=== PATIENT | male | born 1970 | race Hispanic/Latino ===

== ENCOUNTER 2016-07-10 11:32 | Observation (INO) | payer OTHER ==
[2016-07-10 11:37] VITALS: BMI 32.3
[2016-07-10] MEDS ORDERED: Sodium Chloride 0.9% 1,000 ML IV STA (12:26)
[2016-07-10] MEDS ORDERED: guaiFENesin 200 mg/10 ml Syrup UD PO STA (12:27)
[2016-07-10] MEDS ORDERED: Levalbuterol 1.25 MG/3 ML Inhal Soln UD IH STA ×4 (12:27→17:26)
[2016-07-10] MEDS ORDERED: Ipratropium 0.02% Inhal Soln (0.5 mg/2.5 ml) UD IH STA ×3 (12:27→15:27)
--- NOTE | 2016-07-10 12:39 | ED PDOC ---
Arrival/HPI - General Chief Complaint: Cough, Cold, Congestion Time Seen by Provider: 07/10/16 11:39 Historian: Patient - History of Present Illness Narrative History of Present Illness (Text): 07/10/16 11:40 Moy Oakes is a 45 year old male, whose past medical history includes asthma, who presents to the emergency department complaining of sinus congestion and coughs for about 3 weeks. Patient states that he recently finished a 3 week prescription of Ciprofloxacin for prostatitis, and is being followed by Dr. Mcfarland. Patient states that he has mostly improved with his cough and congestion. However, patient states that over the last 1-2 days patient began to feel generalized weakness and dizziness while walking. Patient also still experiences a dull pain while urinating which is similar to the original diagnosis of prostatitis. Patient notes that today while he was carrying a heavy box, he began to feel short of breath and felt like he was going to pass out. Patient denies any headache, chest pain, abdominal pain, nausea, vomiting, diarrhea, or any other complaint at this time. PMD: None Time/Duration: < week Symptom Onset: Gradual Symptom Course: Unchanged Activities at Onset: Light Context: Home Past Medical History - Provider Review Nursing Documentation Reviewed: Yes - Past History Past History: No Previous - Infectious Disease Hx of Infectious Diseases: None - Tetanus Immunization Tetanus Immunization: Unknown - Pulmonary Hx Asthma: Yes - Genitourinary/Gynecological Hx Genitourinary Disorders: Yes Other/Comment: prostatitis - Psychiatric Hx Depression: No Hx Emotional Abuse: No Hx Physical Abuse: No Hx Substance Use: No - Surgical History Hx Orthopedic Surgery: Yes (ANKLE, left when he was 11 yr/old) - Anesthesia Hx Anesthesia: Yes Hx Anesthesia Reactions: No Hx Malignant Hyperthermia: No - Suicidal Assessment Feels Threatened In Home Enviroment: No Family/Social History - Physician Review Nursing Documentation Reviewed: Yes Family/Social History: No Known Family HX Smoking Status: Current Some Days Smoker Hx Alcohol Use: Yes Frequency of alcohol use: Socially Hx Substance Use: No Hx Substance Use Treatment: No Allergies/Home Meds Allergies/Adverse Reactions: Allergies shellfish derived Allergy (Verified 07/10/16 11:53) RASH Home Medications: Home Meds Medication Instructions Recorded Confirmed Budesonide/Formoterol Fumarate 2 puff IH BID 05/03/12 07/10/16 [Symbicort] Albuterol HFA [Ventolin HFA 90 2 puff IH [id number] 07/10/16 07/10/16 mcg/actuation (8 g)] Review of Systems - Physician Review All systems were reviewed & negative as marked: Yes - Review of Systems Constitutional: absent: Fevers, Night Sweats Eyes: absent: Vision Changes ENT: Sinus Congestion. absent: Hearing Changes Respiratory: SOB, Cough Cardiovascular: Other (near syncope). absent: Chest Pain Gastrointestinal: absent: Abdominal Pain Genitourinary Male: Dysuria. absent: Urinary Output Changes Musculoskeletal: absent: Arthralgias, Back Pain, Neck Pain Skin: absent: Rash, Pruritis Neurological: Dizziness Endocrine: absent: Diaphoresis, Polyuria Hemo/Lymphatic: absent: Easy Bleeding Psychiatric: absent: Depression Physical Exam Vital Signs Reviewed: Yes Vital Signs Temp Pulse Resp BP Pulse Ox 07/10/16 17:29 61 18 123/65 99 07/10/16 16:25 64 18 125/67 99 07/10/16 14:11 67 18 128/69 99 07/10/16 12:56 69 18 130/68 99 07/10/16 11:56 98.2 F 75 18 132/71 99 Temperature: Afebrile Blood Pressure: Normal Pulse: Regular Respiratory Rate: Normal Appearance: Positive for: Non-Toxic Pain Distress: None Mental Status: Positive for: Alert and Oriented X 3 - Systems Exam Head: Present: Atraumatic, Normocephalic Pupils: Present: PERRL Conjunctiva: Present: Normal Mouth: Present: Moist Mucous Membranes Pharnyx: Present: Normal. No: ERYTHEMA, EXUDATE Neck: Present: Normal Range of Motion Respiratory/Chest: Present: Wheezes (Significant wheezing at bilateral lung bases), Rhonchi (Occasional rhonchi). No: Good Air Exchange (Air entry diminished) Cardiovascular: Present: Regular Rate and Rhythm, Normal S1, S2. No: Murmurs Abdomen: Present: Normal Bowel Sounds. No: Tenderness, Distention, Peritoneal Signs Back: Present: Normal Inspection Upper Extremity: Present: Normal Inspection. No: Cyanosis, Edema Lower Extremity: Present: Normal Inspection. No: Edema Neurological: Present: GCS=15, CN II-XII Intact, Speech Normal Skin: Present: Warm, Dry, Normal Color. No: Rashes Psychiatric: Present: Alert, Oriented x 3, Normal Insight, Normal Concentration Medical Decision Making ED Course and Treatment: 07/10/16 1:40 Impression: 45 year old male complaining of sinus congestion and cough for 3 weeks and weakness and dizziness 1-2 days ago. Differential Diagnosis included but are not limited to: Asthma vs. CHF vs. Atypical ACS vs. Electrolyte abnormality Plan: -- EKG -- Chest X-ray -- Urinalysis -- Labs -- Robitussin, Atrovent, Xopenex, Solu-medrol, and IV Fluids -- Reassess and disposition Prior Visits: Notes and results from previous visits were reviewed. Patient last seen in the ED on 04/16/15 for cough, nasal congestion, and subjective fevers for 1 week. Patient was admitted to hospitalist care for further evaluation. Progress Notes: EKG: Ordered, reviewed, and independently interpreted the EKG. Rate : 73 BPM Rhythm : NSR Interpretation : Normal intervals. Borderline left axis. No ST-T changes. 07/10/16 19:33 Patient with noted history. EKG is unremarkable. Patient treated for asthma with slow improvement and now air entry is better though slightly diminished still with some mild persistent wheezing. Patient however still saying that twice here in the ED after attempting to ambulate still has the feeling of being dizzy with ambulation. Given concern for near syncope - will need to observe further. D-dimer did come back above normal; CTA chest showed no PE but on suboptimal study. Will observe on tele. Case discussed with radio communication coordinator physician, Dr. Howard, covering Dr. Alvarado, who said to put the patient on his own service. Will obtain cardio and pulmonary consults as well as consult from Dr. Mcfarland who is following him for prostatitis. - Lab Interpretations Lab Results: 07/10/16 13:30 07/10/16 13:30 Lab Results 07/10/16 17:10: D-Dimer, Quantitative 0.53 H 07/10/16 13:30: Urine Color Yellow, Urine Appearance Clear, Urine pH 6.0, Ur Specific [place] <= 1.005, Urine Protein Negative, Urine Glucose (UA) Negative, Urine Ketones Negative, Urine Blood Negative, Urine Nitrate Negative, Urine Bilirubin Negative, Urine Urobilinogen 0.2, Ur Leukocyte Esterase Negative 07/10/16 13:30: Sodium 142, Potassium 4.4, Chloride 106, Carbon Dioxide 26, Anion Gap 14, BUN 17, Creatinine 0.8, Est GFR ( Amer) > 60, Est GFR (Non- Af Amer) > 60, Random Glucose 87, Calcium 9.4, Total Bilirubin 0.6, AST 29, ALT 47, Alkaline Phosphatase 62, Lactate Dehydrogenase 437, Total Creatine Kinase 90 , Troponin I < 0.01, NT-Pro-B Natriuret Pep 17.6, Total Protein 8.1, Albumin 4.8 , Globulin 3.3, Albumin/Globulin Ratio 1.5, Lipase 262 07/10/16 13:30: PT 10.6, INR 0.98, APTT 26.8 07/10/16 13:30: WBC 6.7, RBC 5.22, Hgb 15.9, Hct 44.2, MCV 84.7, MCH 30.5, MCHC 36.0, RDW 12.8, Plt Count 239, MPV 10.2, Gran % 70.4 H, Lymph % (Auto) 19.1 L, Cloud % (Auto) 7.0 H, Eos % (Auto) 3.1, Baso % (Auto) 0.4, Gran # 4.74, Lymph # 1.3, Cloud # 0.5, Eos # 0.2, Baso # 0.03 I have reviewed the lab results: Yes - RAD Interpretation Radiology Orders: 07/10/16 12:26 CHEST TWO VIEWS (PA/LAT) [RAD] Stat 07/10/16 17:50 ANGIO CHEST PE PROTOCOL [CT] Stat - Medication Orders Current Medication Orders: Discontinued Medications Aspirin (Aspirin Chewable) 324 mg PO STAT STA Stop: 07/10/16 19:25 Guaifenesin (Robitussin) 400 mg PO ONCE STA Stop: 07/10/16 12:28 Last Admin: 07/10/16 13:41 Dose: Not Given Non-Admin Reason: Patient Refused Sodium Chloride (Sodium Chloride 0.9%) 1,000 mls @ 999 mls/hr IV .Q1H1M STA Stop: 07/10/16 13:26 Last Admin: 07/10/16 13:40 Dose: 999 mls/hr Iodixanol (Visipaque 320 Mg/Ml 100 Ml) Confirm Administered Dose 100 ml IV .STK- MED ONE Stop: 07/10/16 18:13 Ipratropium Viola (Atrovent) 0.5 mg IH STAT STA Stop: 07/10/16 12:28 Last Admin: 07/10/16 13:40 Dose: 0.5 mg Ipratropium Viola (Atrovent) 0.5 mg IH STAT STA Stop: 07/10/16 12:28 Last Admin: 07/10/16 13:41 Dose: 0.5 mg Ipratropium Viola (Atrovent) 0.5 mg IH STAT STA Stop: 07/10/16 15:28 Last Admin: 07/10/16 16:13 Dose: 0.5 mg Levalbuterol HCl (Xopenex) 1.25 mg IH STAT STA Stop: 07/10/16 12:28 Last Admin: 07/10/16 13:41 Dose: 1.25 mg Levalbuterol HCl (Xopenex) 1.25 mg IH STAT STA Stop: 07/10/16 12:28 Last Admin: 07/10/16 13:41 Dose: 1.25 mg Levalbuterol HCl (Xopenex) 1.25 mg IH STAT STA Stop: 07/10/16 15:28 Last Admin: 07/10/16 16:13 Dose: 1.25 mg Levalbuterol HCl (Xopenex) 1.25 mg IH STAT STA Stop: 07/10/16 17:27 Last Admin: 07/10/16 17:46 Dose: 1.25 mg Methylprednisolone (Solu-Medrol) 125 mg IVP STAT STA Stop: 07/10/16 12:28 Last Admin: 07/10/16 13:40 Dose: 125 mg - Scribe Statement The provider has reviewed the documentation as recorded by the Mona Garcia Provider Scribe Attestation: All medical record entries made by the Luis Albertoibmariza were at my direction and personally dictated by me. I have reviewed the chart and agree that the record accurately reflects my personal performance of the history, physical exam, medical decision making, and the department course for this patient. I have also personally directed, reviewed, and agree with the discharge instructions and disposition. Disposition/Present on Arrival - Present on Arrival Any Indicators Present on Arrival: No History of DVT/PE: No History of Uncontrolled Diabetes: No Urinary Catheter: No History of Decub. Ulcer: No History Surgical Site Infection Following: None - Disposition Have Diagnosis and Disposition been Completed?: Yes Diagnosis: Near syncope, Asthma exacerbation Disposition: HOSPITALIZED Disposition Time: 18:55 Patient Plan: Observation, Telemetry Condition: FAIR Referrals: PCP,NO [Primary Care Provider] - Follow up with primary
[2016-07-10 13:38] LABS: ADD MANUAL DIFF? NO
[2016-07-10 13:44] LABS: BASO # 0.03 K/mm3 (0.0-2.0); BASO % 0.4 % (0.0-3.0); EOS # 0.2 (0.0-0.7); EOS % 3.1 % (1.5-5.0); GRAN # 4.74 (1.4-6.5); GRAN % 70.4 % (50.0-68.0); HEMATOCRIT 44.2 % (42.0-52.0); LYMPH # 1.3 (1.2-3.4); LYMPH % 19.1 % (22.0-35.0); MEAN CELL VOLUME 84.7 fL (80.0-105.0); MEAN CORPUSCULAR HEMOGLOBIN 30.5 pg (25.0-35.0); MEAN PLATELET VOLUME 10.2 fl (7.0-11.0); MONO # 0.5 (0.1-0.6); PLATELET COUNT 239 10^3/uL (120.0-450.0); RED CELL DISTRIBUTION WIDTH 12.8 % (11.5-14.5); WHITE BLOOD COUNT 6.7 10^3/ul (4.5-11.0)
[2016-07-10 13:47] LABS: URINE BILIRUBIN NEGATIVE (NEGATIVE); URINE BLOOD NEGATIVE (NEGATIVE); URINE GLUCOSE (UA) NEGATIVE (NEGATIVE); URINE KETONE NEGATIVE (NEGATIVE); URINE LEUKOCYTE ESTERASE NEGATIVE Leu/uL (NEGATIVE); URINE PROTEIN NEGATIVE mg/dL (<30 mg/dL); URINE UROBILINOGEN 0.2 E.U./dL (<1 E.U./dL)
[2016-07-10 13:49] LABS: URINE APPEARANCE CLEAR (CLEAR); URINE COLOR YELLOW (YELLOW)
[2016-07-10 13:59] LABS: ALB/GLOB RATIO 1.5 (1.1-1.8); ALKALINE PHOSPHATASE 62 U/L (38-133); ALT/SGPT 47 U/L (7-56); AST/SGOT 29 U/L (15-59); BILIRUBIN,TOTAL 0.6 mg/dL (0.2-1.3); BLOOD UREA NITROGEN 17 mg/dL (7-21); CALCIUM 9.4 mg/dL (8.4-10.5); CARBON DIOXIDE 26 mmol/L (21-33); CHLORIDE 106 mmol/L (98-107); GFR AFRICAN-AMERICAN > 60; GLUCOSE,RANDOM 87 mg/dL (70-110); LIPASE 262 U/L (23-300); POTASSIUM 4.4 mmol/L (3.6-5.0); SODIUM 142 mmol/L (132-148); TOTAL PROTEIN 8.1 g/dL (5.8-8.3)
[2016-07-10 14:07] LABS: INR 0.98 (0.93-1.08); PARTIAL THROMBOPLASTIN TIME 26.8 Seconds (23.7-30.8)
[2016-07-10 14:11] LABS: TROPONIN I < 0.01 ng/mL
--- NOTE | 2016-07-10 15:42 | RAD ---
HISTORY: sob COMPARISON: 04/16/2015 TECHNIQUE: Chest PA and lateral FINDINGS: LUNGS: No active pulmonary disease. PLEURA: No significant pleural effusion identified. No pneumothorax apparent. CARDIOVASCULAR: Normal. OSSEOUS STRUCTURES: No significant abnormalities. VISUALIZED UPPER ABDOMEN: Normal. OTHER FINDINGS: None. IMPRESSION: No active disease.
[2016-07-10] MEDS ORDERED: Iodixanol 320 MG/ML 100 ML BOTTLE IV ONE (18:12)
--- NOTE | 2016-07-10 18:44 | CT ---
CT chest with IV contrast Indication: sob, chest tight, near syncope - r/o PE Technique: Contiguous axial images were obtained through the chest with intravenous contrast enhancement. Sagittal and coronal reconstructions were generated and reviewed. This CT exam was performed using 1 or more of the falling dose reduction techniques: Automated exposure control, adjustment of the MAA and/or kV according to patient size, and/or use of iterative reconstruction technique. IV Contrast: 100 mL Visipaque Radiation dose (DLP): 634.50 MGy-cm. Comparison: Chest x-ray performed earlier the same day. Findings: Visualized portions of the inferior thyroid gland appear unremarkable. The mediastinal and hilar vascular structures appear grossly unremarkable. The heart appears within normal limits of size. There is suboptimal opacification of the pulmonary arteries due to streak artifact limiting evaluation for pulmonary embolus. Given this limitation, there are no visible intraluminal filling defects within the central pulmonary arteries to suggest central pulmonary embolism. No focal consolidation. No pleural effusion. No pneumothorax. No suspicious pulmonary nodules identified measuring greater than 5 mm. Small hiatal hernia. Limited visualization of the upper abdomen appears unremarkable. No acute osseous abnormality is detected. Impression: There is suboptimal opacification of the pulmonary arteries due to streak artifact limiting evaluation for pulmonary embolus. Given this limitation, there are no visible intraluminal filling defects within the central pulmonary arteries to suggest central pulmonary embolism.
[2016-07-10] MEDS ORDERED: MethylPREDNISolone 40 mg Vial IVP SCH (22:00)
--- NOTE | 2016-07-10 22:39 | CP.PCM.PN ---
Subjective - Date & Time of Evaluation Date of Evaluation: 07/10/16 Time of Evaluation: 23:47 - Subjective Subjective: S:Requests sleeping pill can not sleep from all the noises in the hospital. O: Last Vital Signs 3 Temp 98.2 F 07/10/16 11:56 Pulse 116 H 07/10/16 21:00 Resp 18 07/10/16 21:00 BP 126/87 07/10/16 21:00 Pulse Ox 95 07/10/16 21:00 Awake, alert, not in distress. LUNGS:Normal breathing pattern. NEURO:Speech normal. A:Adjustment insomnia. P:Benadryl 25 mg PO x 1. Objective - Vital Signs/Intake and Output Vital Signs (last 24 hours): Temp Pulse Resp BP Pulse Ox 98.2 F 116 H 18 126/87 95 07/10/16 11:56 07/10/16 21:00 07/10/16 21:00 07/10/16 21:00 07/10/16 21:00 - Medications Medications: Current Medications Levalbuterol HCl (Xopenex) 1.25 mg IH [id number] KALIN Methylprednisolone (Solu-Medrol) 30 mg IVP Q12 KALIN Tamsulosin HCl (Flomax) 0.4 mg PO DAILY KALIN - Labs Labs: PT 10.6 Seconds (9.9-11.8) 07/10/16 13:30 INR 0.98 (0.93-1.08) 07/10/16 13:30 APTT 26.8 Seconds (23.7-30.8) 07/10/16 13:30
[2016-07-11] MEDS ORDERED: Alum-Mag Hydrox-Simethicone Susp (30 mL) PO STA ×2 (00:03→04:38)
--- NOTE | 2016-07-11 01:33 | CARD ---
APPROVED REPORT EKG Measurement Heart [id number] [id number] <Conclusion> Normal sinus rhythm Minimal voltage criteria for LVH, may be normal variant Cannot rule out Anterior infarct, age undetermined Abnormal ECG
[2016-07-11] MEDS: Levalbuterol 1.25 MG/3 ML Inhal Soln UD IH SCH ×3 (01:46→13:59)
[2016-07-11 02:01] VITALS: RESP 19
--- NOTE | 2016-07-11 02:15 | PCM.URO ---
Urology Progress Note - Objective Vital Signs: Vital Signs - 24 hr 07/10/16 07/10/16 07/10/16 21:00 22:00 23:06 Temperature 98.1 F Pulse Rate 116 H 106 H 107 H Respiratory 18 20 Rate Blood Pressure 126/87 131/87 O2 Sat by Pulse 95 Oximetry 07/11/16 00:01 Temperature 97.3 F L Pulse Rate 98 H Respiratory 19 Rate Blood Pressure 125/77 O2 Sat by Pulse 97 Oximetry
[2016-07-11 06:16] VITALS: BP 118/74; TEMP 97.7; O2SAT 94
[2016-07-11] MEDS ORDERED: Barium Sulfate Susp 2.1% w/v, 2.0% w/w 450 mL Bottle PO ONE (07:14)
--- NOTE | 2016-07-11 07:44 | CON ---
DATE: 07/10/2016 REASON FOR CONSULTATION: Shortness of breath. HISTORY OF PRESENT ILLNESS: The patient is a 45-year-old male who is a cigar smoker, has a history o f bronchial asthma and no known prior cardiac history. He has been experiencing upper respiratory tr act infection as well as sinus congestion. The patient has been experiencing chills, but no fever. He presented because of cough, shortness of breath and at times wheezing. The patient had seen his [facility] physician recently, but for prostatitis. The patient had no complaint of his asthma at this [facility], and the patient is unaware of any prior cardiac history. SOCIAL HISTORY: The patient is a smoker. His smokes at home, he himself smokes cigars once in a while according to him. MEDICATIONS: Flomax 0.4 mg daily, Solu-Medrol 30 mg intravenously q. 12 hours, Xopenex inhaler q. 6 hours p.r.n. PHYSICAL EXAMINATION: GENERAL: The patient is a middle-aged male who does not appear to be in any distress. VITAL SIGNS: Blood pressure 126/87, heart rate 116, respirations 18, temperature 98.2. HEENT: Normocephalic. NECK: No JVD. CHEST: Bilateral rhonchi. No wheezing. HEART: S1, S2 regular. ABDOMEN: Soft. EXTREMITIES: No edema, no calf tenderness. LABORATORY DATA: Hemoglobin and hematocrit, white count and platelet count are within normal limits. SMA-7 is within normal limits. One set of troponin is negative. Lipase level is within normal [place] its. D-dimer is 0.53. EKG revealed sinus rhythm, cannot rule out old anterior infarct. Chest CT angio: There is suboptima l opacification of the pulmonary arteries due to streak artifact. Given this limitation, there is no visible intraluminal filling defect within the central pulmonary arteries to suggest central pulmona ry embolism. ASSESSMENT: 1. Exacerbation of bronchial asthma. 2. Atypical chest discomfort. RECOMMENDATIONS: Continue current Solu-Medrol 30 mg intravenous q. 12 hours. Continue Xopenex inhal er. Start Lovenox at 30 mg once a day. Obtain an echocardiogram and urine for drug screen. Nabil A Sandornallah MD cc: [id number] TT: 07/11/2016 07:43:48 Confirmation # [id number] Dictation # [id number] mn
[2016-07-11 07:47] LABS: HEMATOCRIT 42.4 % (42.0-52.0); MEAN CELL VOLUME 84.6 fL (80.0-105.0); MEAN CORPUSCULAR HEMOGLOBIN 29.7 pg (25.0-35.0); MEAN CORPUSCULAR HGB CONC 35.1 g/dl (31.0-37.0); MEAN PLATELET VOLUME 10.7 fl (7.0-11.0); RED CELL DISTRIBUTION WIDTH 13.1 % (11.5-14.5); WHITE BLOOD COUNT 13.2 10^3/ul (4.5-11.0)
[2016-07-11] MEDS ORDERED: Budesonide 0.5 mg/2 ml Inhal Susp UD IH SCH (08:00)
[2016-07-11 08:08] LABS: ALB/GLOB RATIO 1.4 (1.1-1.8); ALKALINE PHOSPHATASE 52 U/L (38-133); ALT/SGPT 38 U/L (7-56); AST/SGOT 23 U/L (15-59); BILIRUBIN,TOTAL 0.6 mg/dL (0.2-1.3); BLOOD UREA NITROGEN 15 mg/dL (7-21); CALCIUM 9.3 mg/dL (8.4-10.5); CARBON DIOXIDE 21 mmol/L (21-33); CHLORIDE 108 mmol/L (98-107); GFR AFRICAN-AMERICAN > 60; GLUCOSE,RANDOM 110 mg/dL (70-110); POTASSIUM 4.5 mmol/L (3.6-5.0); SODIUM 141 mmol/L (132-148); TOTAL PROTEIN 7.6 g/dL (5.8-8.3)
--- NOTE | 2016-07-11 09:26 | CON ---
DATE: 07/11/2016 REASON FOR PULMONARY CONSULTATION: Asthma. REFERRING PHYSICIAN: Dr. Kamar Howard The patient is a 45-year-old male with past medical history significant for asthma, recurrent bronchitis, chronic sinusitis, who presents to [facility] after a near syncopal episode. 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 This feeling was accompanied by shortness of breath. He then came to the Emergency Room for additional evaluation. The patient is not short of breath at rest. He does state to some mild dyspnea on exertion. He does state to a minimal cough with sputum production -- decreased from the beginning of the month. No history of chest pain, coughing up of blood, or chest pain -- made worse with deep respirations. There is no history of temperatures, chills or infectious exposure. There is no history of night sweats, weight loss or appetite change prior to the above events. No history of leg or calf pains. No history of syncope or diaphoresis. No history of recent travel or trauma. REVIEW OF SYSTEMS: The patient does have chronic prostate problems and problems with urination. The patient also has chronic sinus problems. No nausea, vomiting or diarrhea. No new musculoskeletal complaints. Rest is negative. ALLERGIES: SHELLFISH. SOCIAL HISTORY: Negative for tobacco, negative for alcohol. FAMILY HISTORY: No inheritable diseases. HOME MEDICATIONS: Include albuterol, Symbicort, and Flomax. PHYSICAL EXAMINATION: GENERAL: The patient appears comfortable this morning. He is not short of breath at rest. VITAL SIGNS: Temperature is 97.7, pulse 72, respirations 19, blood pressure 118 /74. Oxygen saturation on nasal cannula is 94%-97%. HEENT: Normocephalic, atraumatic. No JVD. CARDIOVASCULAR: Positive S1, S2. No S3. LUNGS: Decreased breath sounds at the bases. Mild bilateral rhonchi. No wheezing. EXTREMITIES: No clubbing, cyanosis, or edema. Calves are nontender to palpation. GASTROINTESTINAL: Abdomen is soft, nontender, nondistended. Bowel sounds are positive. SKIN: No acute rash. NEUROLOGIC: Limited at the present time. PERTINENT LABORATORY DATA: CAT scan of the chest was done as an angiogram protocol. There is no pulmonary embolism seen. There is no lymphadenopathy. There is no pulmonary consolidation, pleural effusion, or pulmonary nodule seen. CBC: White count 6.7, hemoglobin 15.9, hematocrit 44.2, platelets of 239. Complete metabolic profile is completely within normal limits. IMPRESSION: 1. Near syncope. 2. Asthma. 3. Recurrent bronchitis. 4. Chronic sinusitis. PLAN: This patient is well known to me, and I have followed him in the office for many years. Apparently, yesterday, when carrying a heavy box at work, he felt very dizzy and almost like he was about to pass out. This feeling was accompanied by shortness of breath. At the time of my examination, the patient is not short of breath, and states he is feeling much better-- compared to yesterday. I did review the CAT scan of the chest. There is no pulmonary embolism seen. There are no pulmonary masses, nodules or consolidations seen. On physical exam, the patient is in mild bronchospasm. I will continue with the current nebulizer treatments and add inhaled Pulmicort. The patient is on Symbicort at home. I will also decrease the intravenous steroids this morning. Lastly, I will start the patient on nasal steroids. Genitourinary evaluation is noted. CAT scan of the abdomen and pelvis is ordered for later today. Cardiology evaluation with Dr. Felix has also been ordered. The patient's clinical status is significantly improved this morning -- compared to yesterday. Additional pulmonary intervention will be based on the clinical status of the patient. I did discuss the above with Dr. Kamar Howard. Thank you very much for this pulmonary consultation. Rishi Piedra MD cc: [phone] TT: 07/11/2016 09:25:46 Confirmation # [id number] Dictation # [id number] MTDD
--- NOTE | 2016-07-11 09:33 | PN ---
DATE: 07/11/2016 HISTORY OF PRESENT ILLNESS: I was called to see the patient. He is here for a little bit of dizzine ss and some shortness of breath and chest pain. He had a rough day the past few weeks. He is a 45-y ear-old male with 3 weeks of a cough, cold, congestion. He was on Cipro for prostatitis by Dr. Cr maguire. He was doing fairly well, until he got dizzy, he got weak. He was not eating or drinking well a nd then he went and sat in a car with the air conditioning on, had a chocolate bar then carried 20 po unds of screws about 200 yards and got short of breath and came to the Emergency Room. He has a past medical history of asthma. He thought it was his asthma that made him short of breath. He sees Dr. Piedra, the herbarium worker, on the outpatient and also has prostatitis, he sees Dr. Mcfarland. PAST SURGICAL HISTORY: He had a left ankle surgery when he 11. FAMILY HISTORY: He has no known family history. SOCIAL HISTORY: He still smokes cigarettes. I told him he has to quit. He does drink alcohol socia lly. No drugs. ALLERGIES: SHELLFISH. MEDICATIONS: He is on Symbicort and Ventolin, his medicines on the outpatient. REVIEW OF SYSTEMS: He had no fevers, no sweats, no vision changes, no hearing changes, no sore throa t. No neck pain. He did have shortness of breath and cough, not much phlegm. No chest pain, no pal pitations. He did feel a little dizzy, almost passed out, but did not. No abdominal pain, nausea, v omiting, constipation. Does have problems urinating, a little discomfort, but the Cipro has helped h im in the past and Dr. Mcfarland sees him on the outpatient for that. No back pain, neck pain. No elfego hes or skin issues or itching. He was a little bit dizzy, that it better now; I think the IV fluids helped a lot. He was not sweating, no increase in urination, not easily bleeding. Not depressed or anxious. PHYSICAL EXAMINATION: VITAL SIGNS: He has 98.2 temp, 69 pulse, 18 respiratory rate, 130/68 blood pressure, 99% O2 sat on r oom air. HEENT: Head is atraumatic, normocephalic. Extraocular muscles are intact. Pupils reactive to light and accommodation. Throat is moist. NECK: Supple. HEART: Regular rate. Normal S1, S2. LUNGS: Decreased breath sounds, occasional wheeze when he came into the hospital, right now the lung s are completely clear. He is not short of breath. He feels good. He is walking to the bathroom we ll. No chest pain, no dizziness, no palpitations. ABDOMEN: Soft, nontender, positive bowel sounds, no guarding, no rebound, no CVA tenderness. EXTREMITIES: Have no edema. He moves all 4 extremities well. He is walking to the bathroom. NEUROLOGIC: GCS is 15. Cranial nerves II-XII grossly intact. Normal speech. He is happy, smiling, says he has to leave. Alert and oriented x 3. Normal insight. Normal concentration. SKIN: Warm and dry, no rashes. No ulcers. Intact. NEUROLOGIC: LYMPHATICS: Thyroid midline. No palpable appreciative lymphadenopathy. LABORATORY DATA: He had some tests done. Urine for drugs was negative. Urine itself was negative. Chemistry is 142 sodium, potassium 4.4, BUN 17, creatinine 0.8, GFR is greater than 60, sugar is 87, calcium is 9.4, total bili is 0.6, AST is 29, ALT is 47, alk phosphatase 62. Lactic dehydrogenase i s 437, total creatinine kinase is 90, troponin I is less than 0.01. BNP is 17.6, total protein is 8. 1, albumin is 4.8, globulin 3.3. Lipase is 262. INR is 0.98. D-dimer was 0.53 little high to is be cause of the CAT scan. WBC is 6.7, hemoglobin 15.9, hematocrit 44.2, platelets of 239, excellent blo od tests. He did have a chest x-ray, no active disease. CAT scan of the chest showed there suboptim al opacification of the pulmonary arteries due to streak artifact limiting evaluation of pulmonary em bolus, given the limitation there are no visible intraluminal any filling defects within the central pulmonary arteries to suggest central pulmonary embolism. He was seen by pulmonary and urology. He will be able to be discharged today. I discussed with chris aguilera, he is doing much better. He will be sent home on prednisone 30 for 3 days, 20 for 3 days, 10 for 3 days, also on his Symbicort, albuterol and Flomax. He will follow up with Dr. Piedra, Dr. Karen coker, Dr. Howard on the outpatient. He is here for coughing, congestion for 3 weeks, a bit of dizziness which resolved, near syncope. Th ere was a consult with neurology and cardiology. I would like them to see him before he leaves. PLAN: My plan is to discharge him for outpatient workup, since he is back to normal at this time and should be able to be discharged later this afternoon. Kamar Howard DO cc: [id number] TT: 07/11/2016 09:32:05 Confirmation # [id number] Dictation # [id number] [id number]
[2016-07-11] MEDS ORDERED: Fluticasone Nasal 50 mcg/Spray NS SCH (10:00)
[2016-07-11] MEDS ORDERED: MethylPREDNISolone 40 mg Vial IVP SCH (10:00)
[2016-07-11] MEDS ORDERED: Enoxaparin 30 mg Syringe SC SCH (10:00)
--- NOTE | 2016-07-11 10:35 | DS ---
His breathing issues, his dizziness have all resolved. He is also urinating better. MEDICATIONS: He is on Flonase, Flomax, Lovenox, Pulmicort, Solu-Medrol, and Xopenex. PHYSICAL EXAMINATION: VITAL SIGNS: Good at 97.7 temp, 72 pulse, 118/78 blood pressure, 19 respiratory rate, 94%-97% O2 sat on nasal cannula. HEAD: Atraumatic, normocephalic. HEART: Regular rate. LUNGS: Clear to auscultation. No wheezes, no rhonchi, no rales. ABDOMEN: Soft. EXTREMITIES: No edema. No more dizziness. He is walking to the bathroom fine. He did very well with his blood tests. There are consults for pulmonary, neurology, urology, and cardiology. I think they could all follow up on the outpatient. PLAN: My plan is to discharge him today. Prednisone 30 for 3 days, 20 for 3 days, 10 for 3 days. Follow with pulmonary, cardio, neurology, and Dr. Howard on the outpatient. He feels he is back to normal. He is for observation status at this time. The patient is here for almost near syncope and acute asthma. Kamar Howard DO cc: [id number] TT: 07/11/2016 10:34:34 jn MTDD
--- NOTE | 2016-07-11 11:54 | CP.PCM.PCO ---
Physician Communication Note - Physician Communication Note Physician Communication Note: pt seen can f/u in office. stable
[2016-07-11 12:24] VITALS: PULSE 85
--- NOTE | 2016-07-11 12:25 | CON ---
DATE: 07/11/2016 HISTORY OF PRESENT ILLNESS: This is a 45-year-old male with past medical history of asthma, bronchit is and came here with the complaint of a near syncopal episode while at work. The patient says he wa s carrying heavy box yesterday when he suddenly felt like going to pass out, did not fall. No tongue bite. No urinary incontinence. I was called to evaluate the patient. PAST MEDICAL HISTORY: As above. SOCIAL HISTORY: Does not smoke, does not drink. REVIEW OF SYSTEMS: A 10-point review of system was negative. ALLERGIES: SHELLFISH. PHYSICAL EXAMINATION: HEENT: Normocephalic, atraumatic. NECK: Supple. NEUROLOGIC: Alert, awake, oriented x 3. No aphasia. Cranial nerves II-XII were tested. Pupils saige ctive. EOM intact. Visual barrios full. No facial asymmetry. Tongue midline. Motor: Moves all th e extremities equally. Tone normal. Deep tendon reflexes 1+. Both plantars are downgoing. Sensory appears intact. Cerebellar, gait normal. IMPRESSION: Near syncope, less likely seizure. Workup in progress. PLAN: Continue present management. We will follow up. Kody Awad MD cc: [id number] TT: 07/11/2016 12:24:23 Confirmation # [id number] Dictation # [id number]
--- NOTE | 2016-07-11 15:16 | PN ---
DATE: 07/11/2016 The patient feels well. No shortness of breath, no dizziness. PHYSICAL EXAMINATION: VITAL SIGNS: Blood pressure is 150/90, the heart rate is in the 80s. NECK: Negative JVD. LUNGS: Without rales. HEART: S1, S2. EXTREMITIES: Without edema. LABORATORY DATA: Troponin was negative x 1. The hemoglobin is 14.9. Preliminary echo results revealed normal LV function with no LV outflow obstruction. IMPRESSION: 1. Near syncope after exertion. 2. No cardiac evidence for cause of his near syncope. 3. Dyspnea secondary to #4. 4. Bronchospasm. PLAN: Given these findings, there is no identifiable cardiac cause for his near syncopal episode. H is breathing is improved. Given these findings, the patient is already discharged today. We will arrange for an outpatient stress test to rule out CAD. Micheal Felix MD cc: [id number] TT: 07/11/2016 15:15:35 Confirmation # [id number] Dictation # [id number]
--- NOTE | 2016-07-11 15:28 | CT ---
PROCEDURE: CT abdomen and pelvis 07/11/2016 HISTORY: Recurrent prostatitis. COMPARISON: None. TECHNIQUE: Contiguous axial images of the abdomen and pelvis following oral an before and after intravenous injection of approximately 150 cc of Omnipaque 350 contrast material. Coronal and Sagittal reformats generated. Radiation dose: Total exam DLP = 1855.92 mGy-cm. This CT exam was performed using one or more of the following dose reduction techniques: Automated exposure control, adjustment of the mA and/or kV according to patient size, and/or use of iterative reconstruction technique. FINDINGS: LOWER THORAX: Mild dependent/passive type atelectasis both posterior lower lung barrios. No focal consolidation. No effusion or basilar pneumothorax. Small hiatal hernia with wall thickening of the distal esophagus the which could be due to protrusion of gastric mucosa. Possibility of esophagitis or other intrinsic/invasive wall lesion to be excluded. Heart appears mildly enlarged. LIVER: The liver exhibits normal size measuring approximately 16.5 cm in CC dimension. There is a tiny sub cm low-attenuation focus posterior superior aspect right lobe liver near the diaphragmatic dome best seen on axial image number 24 too small to characterize. Followup interval could be performed to assess stability. Portal and splenic veins are opacified. No gross intrahepatic biliary ductal dilatation GALLBLADDER AND BILE DUCTS: Gallbladder is physiologically distended. No evidence of intraluminal gallbladder calculi. PANCREAS: Pancreas is slightly atrophic and fatty replaced. No obvious pancreatic mass collection or calcification. SPLEEN: Spleen exhibits normal size and attenuation pattern without without mass collection or calcification. ADRENALS: There are no adrenal lesions seen. KIDNEYS AND URETERS: Kidneys demonstrate relatively symmetric nephrograms.Dilatation of the inferior aspect left renal collecting system and left renal pelvis (a portion of which is extrarenal) which rapidly tapers to normal size caliber proximally ureter. . This could be secondary to chronic UPJ. No evidence of nephrolithiasis. No obvious renal mass or collection seen on this exam. . BLADDER: Urinary bladder is physiologically distended. No evidence of intraluminal urinary bladder calculi. REPRODUCTIVE: The seminal vesicles appear grossly unremarkable. The prostate is slightly heterogeneous in appearance measuring approximately 3.4 cm in transverse dimension. APPENDIX: What may represent a short appendix is best seen on coronal image number 68- 69. No periappendiceal inflammatory changes. . BOWEL: Evaluation of the bowel is limited due to incomplete opacification. The stomach is incompletely distended which may account for slight thick-walled appearance. Gastritis not excluded. Visualized loops of small bowel exhibit normal contour and caliber. No evidence of acute mechanical small bowel obstruction. . Stool and air seen throughout the colon moderately large amount of which is located in the cecum and at ascending as well as transverse colon suggesting mild fecal retention/constipation. Scattered diverticula seen along the sigmoid colon. No radiographic evidence of acute diverticulitis. PERITONEUM: No free or loculated fluid collections. No gross free intraperitoneal air. Note made of a small bubble of air within the right lower anterior abdominal abdominal/upper pelvic subcutaneous fat overlying ; this could be due to subcutaneous in injection. Clinical correlation recommended. LYMPH NODES: There are multiple small to medium-sized sized upper mesenteric as well as the right lower quadrant ; rule out mesenteric adenitis. There also few small nonspecific retroperitoneal lymph nodes. VASCULATURE: No evidence of abdominal aortic aneurysm. BONES: . The very minor multilevel degenerative spondylosis of the lower thoracic and lumbar spine. No acute compression fractures nor retropulsed fragments. Vertebral bodies exhibit relatively normal stature. Small sclerotic focus right acetabulum may represent bone island or osteoma. OTHER FINDINGS: None. IMPRESSION: Dilatation of the inferior aspect left renal collecting system and partial extrarenal pelvis. The proximal left ureter exhibits normal caliber. Findings could represent chronic UPJ. No evidence of nephrolithiasis. Slightly heterogeneous appearing prostate gland nonspecific. Correlation with PSA recommended. Multiple small to medium size mesenteric lymph nodes could represent mesenteric adenitis. Few small nonspecific retroperitoneal lymph nodes. Few scattered colonic diverticula. No radiographic evidence of acute diverticulitis. Findings consistent with mild constipation. Small hiatal hernia with wall thickening of the distal esophagus that could be due to protrusion of gastric mucosa. Possibility of esophagitis not excluded.
--- NOTE | 2016-07-11 16:38 | CARD ---
APPROVED REPORT EXAM: Two-dimensional and M-mode echocardiogram with Doppler and color Doppler. INDICATION Syncope 2D DIMENSIONS Left Atrium (2D)3.6 (1.6-4.0cm)IVSd1.1 (0.7-1.1cm) LVDd4.4 (3.9-5.9cm)PWd1.1 (0.7-1.1cm) LVDs3.1 (2.5-4.0cm)FS (%) 30.1 % LVEF (%)57.7 (>50%) M-Mode DIMENSIONS Aortic Root3.40 (2.2-3.7cm)Aortic Cusp Exc.2.20 (1.5-2.0cm) Aortic Valve AoV Peak Gwdvzpom584.0cm/[place] Peak GR.10mmHg Mitral Valve MV E Kipdqtbe31.8cm/sMV A Kntjbcas26.8cm/sE/A ratio1.0 TDI Lateral E' Peak V10.40cm/sMedial E' Peak V7.70cm/sE/Lateral E'8.7 E/Medial E'11.8 Pulmonary Valve PV Peak Yqrngydg70.0cm/sPV Peak Grad.2mmHg Tricuspid Valve TR Peak [id number]/sRAP [id number] Peak Gr.21mmHg [id number] LEFT VENTRICLE The left ventricle is normal size. There is normal left ventricular wall thickness. The left ventricular function is normal. The left ventricular ejection fraction is within the normal range. There is normal LV segmental wall motion. Transmitral Doppler flow pattern is Grade I-abnormal relaxation pattern. RIGHT VENTRICLE The right ventricle is normal size. There is normal right ventricular wall thickness. The right ventricular systolic function is normal. ATRIA The left atrium size is normal. The right atrium size is normal. AORTIC VALVE The aortic valve is normal in structure. No aortic regurgitation is present. MITRAL VALVE The mitral valve is normal in structure. There is no mitral valve regurgitation noted. TRICUSPID VALVE There is no pulmonary hypertension. GREAT VESSELS The aortic root is normal in size. The IVC is normal in size and collapses >50% with inspiration. <Conclusion> The left ventricle is normal size. There is normal left ventricular wall thickness. The left ventricular function is normal. The left ventricular ejection fraction is within the normal range. There is normal LV segmental wall motion. Transmitral Doppler flow pattern is Grade I-abnormal relaxation pattern.
== END 2016-07-11 17:45 | disposition home or self-care (01) ==
LOC: ED 11:32 → ERH 19:25 → 2RSO 21:26
PROVIDERS: ADMIT Family Medicine; ATTEND Family Medicine
DX: J45.901 Unspecified asthma with (acute) exacerbation (principal); R55 Syncope and collapse; R07.89 Other chest pain; J32.9 Chronic sinusitis, unspecified; F51.02 Adjustment insomnia; N41.9 Inflammatory disease of prostate, unspecified
CPT/HCPCS: 36415; 71020; 71275; 74178; 80053; 81003; 82550; 83615; 83690; 83880; 84484; 85025; 85027; 85378; 85610; 85730; 93005; 93306; 94640; 94760; 96374; 99285; G0378; G0480; J1650; J2920; J2930; J7040; Q9967